=== PATIENT | female | born 1985 | race Caucasian/White ===

== ENCOUNTER 2018-10-24 20:10 | Inpatient (IN) | payer OTHER ==
[2018-10-24 20:35] LABS: #Basophils 0.1 thou/uL (0.0-0.2); #Eosinphils 0.1 thou/uL (0.0-0.7); #Lymphocytes 2.3 thou/uL (1.20-3.40); #Monocytes 0.7 thou/uL (0.11-0.59); #Neutrophils 7.9 thou/uL (1.40-6.50); %Basophils 0.7 % (0.0-1.0); %Eosinophils 1.1 % (0.0-10.0); %Lymphocytes 20.8 % (21.0-51.0); %Monocytes 5.9 % (0.0-10.0); %Neutrophils 71.6 % (42.0-75.0); Hemoglobin 15.5 g/dL (12.0-16.0); Mean Corpuscular Hemoglobin 33.3 pg (27.0-31.0); Mean Corpuscular Volume 97.9 fL (78.0-98.0); Mean Platelet Volume 10.5 fL (7.4-10.4); Platelet Count 124 thou/uL (130-400); RBC Distribution Width 12.4 % (11.5-14.5); Red Blood Cell (RBC) Count 4.65 mill/uL (4.20-5.40); White Blood Cell (WBC) Count 11.1 thou/uL (4.8-10.8)
[2018-10-24 20:49] LABS: ALT (SGPT) 20 U/L (8-55); AST (SGOT) 24 U/L (5-34); Albumin 4.5 g/dL (3.5-5.0); Alkaline Phosphatase 68 U/L (40-150); Anion Gap 15 mmol/L (10-20); BUN (Urea Nitrogen) 10 mg/dL (7.0-18.7); Bilirubin, Total 1.1 mg/dL (0.2-1.2); Calc. Creatinine Clearance 0 mL/min (70-130); Calcium 11.1 mg/dL (7.8-10.44); Carbon Dioxide 24 mmol/L (22-29); Chloride 104 mmol/L (98-107); Estimated GFR-MDRD 73; Globulin 3.2 g/dL (2.4-3.5); Glucose 159 mg/dL (70-105); Potassium 4.2 mmol/L (3.5-5.1); Protein, Total 7.7 g/dL (6.0-8.3); Sodium 139 mmol/L (136-145)
[2018-10-24 21:07] LABS: CKMB 1.2 ng/mL (0-6.6)
[2018-10-24 21:11] LABS: BHCG - Serum Negative (NEGATIVE); Pregs Control Background? CLEAR/WHITE (CLR/WHITE); Pregs Control Bar Appear? YES (CONTROL BAR)
[2018-10-24] MEDS ORDERED: Heparin 25,000 units/D5W 500 ML ONE (21:44)
[2018-10-24] MEDS ORDERED: Heparin 5,000 UNITS/ML VIAL ONE (21:59)
--- NOTE | 2018-10-24 22:14 | CT ---
CT ANGIOGRAM CHEST: 10/24/2018 HISTORY: Chest pain. COMPARISON: None. TECHNIQUE: Axial CT imaging obtained at 2 mm intervals, from the thoracic inlet through the upper abdomen, with IV contrast, using a CT angiogram protocol. Coronal and sagittal 3D reformatted imaging obtained. FINDINGS: There is large volume, acute pulmonary artery embolism seen. There is a linear saddle embolus. Ther e is also clot within the distal main pulmonary artery bilaterally, right greater than left. There i s clot extending into all lobar and segmental pulmonary arteries, supplying both lungs, right greater than left. There is also clot seen within the left atrium and in the region of the pulmonary vein, draining the right lower lobe. There is contrast media within the intrahepatic IVC and hepatic vein, suggesting poor cardiac output. In addition, the right ventricle appears dilated, and the intravent ricular septum is deviated to the left, concerning for right heart strain. There is no pneumothorax. There is mild patchy linear density noted in the superior segment of the r ight lower lobe, best seen on coronal image 18. This may represent a focal area of volume loss or sc ar or, less likely, infectious pneumonitis. There is no discrete/dominant pulmonary parenchymal mass lesion or nodule on either side. No worrisome lytic or blastic bone lesion is seen. There is no lymphadenopathy identified within the chest. IMPRESSION: Large volume, extensive bilateral pulmonary artery embolism, including saddle embolus. There are fin dings concerning for right heart strain, which includes prominence of the right ventricle, a deviatio n of the intraventricular septum to the left, and reflux of contrast media into the hepatic veins and intrahepatic inferior vena cava. There are also findings suspicious for clot, involving the pulmona ry veins draining the right lower lobe and the posterolateral aspect of the left atrium. Results were called to Dr. Timmons at 9:25 p.m. on 10/24/2018. CODE CR POS: OFF
[2018-10-24 23:29] LABS: Troponin I 0.062 ng/mL (< 0.028)
[2018-10-25 00:28] VITALS: BMI 22.2
[2018-10-25] MEDS ORDERED: Heparin 10,000 UNITS/ 10 ML VIAL SLOW IVP SCH (01:00)
[2018-10-25] MEDS ORDERED: Heparin 25,000 units/D5W 500 ML IV SCH (01:00)
[2018-10-25] MEDS ORDERED: Bisacodyl 5 MG TAB PO PRN (01:13)
[2018-10-25] MEDS ORDERED: HYDROcodone/Acetaminophen 5/325 mg Tablet PO PRN (01:13)
[2018-10-25] MEDS ORDERED: Nitroglycerin 0.4 MG TAB (25 Tab Bottle) SL PRN (01:13)
[2018-10-25] MEDS ORDERED: Senokot S 8.6-50 MG TAB PO PRN ×2 (01:13)
[2018-10-25] MEDS ORDERED: Benzonatate 100 MG CAP PO PRN (01:13)
[2018-10-25] MEDS ORDERED: Acetaminophen 500 MG TAB PO PRN (01:13)
[2018-10-25] MEDS ORDERED: hydrALAZINE 20 MG/ML VIAL SLOW IVP PRN (01:13)
[2018-10-25] MEDS ORDERED: Ondansetron PF 4 MG/2 ML Vial IVP PRN ×2 (01:13)
[2018-10-25] MEDS ORDERED: Diabetic Tussin 200 MG/10 ML UDCUP PO PRN (01:13)
[2018-10-25] MEDS ORDERED: cloNIDine 0.1 MG TAB PO PRN (01:13)
--- NOTE | 2018-10-25 02:19 | HP ---
PRIMARY CARE PHYSICIAN: YRIS. CHIEF COMPLAINT: Shortness breath and chest pain. HISTORY OF PRESENTING ILLNESS: Ms. Baptiste is a pleasant 33-year-old female without any significant past medical history except for tobacco abuse, who presented to the [facility] with above-mentioned complaint. History is mainly obtained by the patient herself. Electronic medical records have been reviewed. Case has been discussed with admitting ER physician, Dr. Timmons. Ms. Baptiste reports that she has been in her usual health up until yesterday morning. She is very active and is physically mobile. She was climbing a flight of stairs yesterday when all of a sudden she felt very short of breath and continued to get worse from there on. She also started to experience chest discomfort and chest pain with inspiration. She has no prior symptoms other than what happened yesterday morning. She has no recent illnesses. Denies any fever, chills, or sick contacts. She denies any recent travel. She did have an accident when she fell in the pool and broke her left arm. Her left arm was in the cast for about 6 weeks and just got removed few days ago. She did notice a little bit of swelling and some pain in the cubital fossa after the cast was removed, but that has been getting better. Other than that, she denies being on any contraceptives oral or implantable. She drinks quite heavily about a bottle of wine every day and smokes pack of cigarettes per day as well. Denies any significant family history of bleeding or clotting disorders. Upon presentation to the emergency room, she was quite tachycardic with a heart rate of 133. Fortunately, she was saturating 98% on room air and otherwise was hemodynamically stable. She underwent a CT angio in the ER as well as 12-lead EKG. The EKG showed sinus tachycardia and T-wave inversion in lead 3, AVF, V1, V2, and V3. Her CT angio of the chest, however, showed extensive bilateral pulmonary embolism including a saddle embolus and left atrial thrombus and pulmonary vein thrombus with right heart strain and dilatation and septal deviation. It was read as extensive PE in all lobar and segmental pulmonary arteries, right greater than left. She was started on heparin drip and emergency room physician contacted on-call ict programmer, Dr. Smith. Because of extensive clot burden and evidence of right-sided heart strain, decision was made to give her tPA. Unfortunately because of the heparin bolus, the tPA could not be given 2 hours after the last dose of heparin. Meanwhile, she is being transferred here to Critical Care unit admission for further treatment of her extensive PE. TPA will be shortly given as she is about 2 hours out from the last dose of heparin. At the time of my evaluation, the patient is hemodynamically stable and is asymptomatic except for some pain in the chest when she takes a deep breath. PAST MEDICAL HISTORY: None reviewed with the patient. PAST SURGICAL HISTORY: section and left fracture casting 6 weeks ago. PSYCHIATRIC HISTORY: No anxiety. No depression. SOCIAL HISTORY: She drinks every day and smokes one pack of cigarette per day. Denies any drug abuse. FAMILY HISTORY: No significant family history of clotting or bleeding disorder. One of her family members have diabetes but other than that, no cancer or cardiac history in family. ALLERGIES: NO KNOWN MEDICATION ALLERGIES. CURRENT MEDICATIONS: Unknown beta asad. REVIEW OF SYSTEMS: A 14-point review of system is done and is negative except for those mentioned in the history and physical. LABORATORY DATA: CBC shows WBCs 11.1. Serum chemistry showed glucose 159, calcium 11.1, with no baseline available. Troponin initially 0.071, with repeat troponin of 0.062. Serum test is negative. CT angio by my review shows extensive PE including saddle embolus. Left atrial clot is also seen. Ventricle appears dilated as well and the intraventricular septum is deviated to the left, concerning for right heart strain. Probably the EKG by my review shows T-wave inversion as per the HPI, lead 3, V1, V2, V3, and AVF. PHYSICAL EXAMINATION: VITAL SIGNS: Most recent vital signs, temperature 98.3, heart rate 109, blood pressure 97/74, saturating 96% on room air, respirations 23. GENERAL: The patient is awake, alert, and oriented x3. She is sitting upright in bed comfortably and is in no respiratory distress. HEENT: Mucous membrane is moist and pink. No oropharyngeal exudate or erythema. Head is normocephalic and atraumatic. Pupils are equal and reactive to light and accommodation. Extraocular movement intact. NECK: Supple without any lymphadenopathy, JVD, or bruit. CHEST: Clear to auscultation without any wheezing, rales, or rhonchi. Rate and rhythm are regular without any murmurs, rubs, or gallops except for some sinus tachycardia. ABDOMEN: Soft, nontender, and nondistended. Positive bowel sounds. EXTREMITIES: Free of any cyanosis, clubbing, or edema except for small swelling in her left hand on the dorsal aspect. She has no tenderness to palpation in upper or lower extremity without any obvious swellings or erythema. NEUROLOGICAL: Nonfocal. SKIN: Free of any rashes or bruises. PSYCHIATRIC: Normal affect. She does appear somewhat anxious. IMPRESSION AND PLAN: 1. Extensive bilateral pulmonary embolism. The patient is receiving tPA in the CCU setting. Critical care physician has been consulted and Dr. Smith will also see the patient. She is fortunately hemodynamically stable for now and we will keep a very close eye on her as she has high potential for clinical decompensation with evidence of right ventricular strain as well. She has received a dose of heparin bolus in the ER prior to the tPA and we will avoid any further anticoagulation 24 hours after tPA. All the relative contraindications and absolute contraindications versus indications were reviewed for the tPA prior to administration. The patient most likely has had an upper extremity deep venous thrombosis or superficial vein clot as the arm was immobilized in the cast for 6 weeks causing the pulmonary embolism, though the pulmonary embolism is quite extensive for upper extremity clots. We will do lower extremity ultrasound as well as upper extremity ultrasound to rule out any provoking factors including deep venous thrombosis. Otherwise, a hypercoagulable panel has also been ordered. The patient is not on any medications nor does she have any family history to suggest any inheritable diseases. We will use oxygen as needed and monitor her blood pressure and oxygenation closely. 2. Right-sided heart strain. We will continue to trend cardiac enzyme and also check a BNP. TPA has been given because of this reason as well. 3. Tobacco and alcohol abuse. The patient has been counseled. DISPOSITION: Ms. Baptiste is currently being admitted to CCU with extensive bilateral pulmonary embolus with left atrial clot, as well as right ventricular strain. She is at high risk for clinical decompensation, but too unstable to transfer to [facility]. She is now status post tPA and will be started on anticoagulation 24 hours after that. She will be monitored in CCU with pulmonology consultation. ESTIMATED LENGTH OF STAY: 2 to 3 midnights. Job ID: [id number]
[2018-10-25 03:36] LABS: Troponin I 0.041 ng/mL (< 0.028)
[2018-10-25 04:44] LABS: #Eosinphils 0.1 thou/uL (0.0-0.7); #Lymphocytes 1.9 thou/uL (1.20-3.40); #Monocytes 0.6 thou/uL (0.11-0.59); #Neutrophils 4.5 thou/uL (1.40-6.50); %Basophils 0.3 % (0.0-1.0); %Eosinophils 1.7 % (0.0-10.0); %Lymphocytes 26.9 % (21.0-51.0); %Monocytes 8.1 % (0.0-10.0); Hemoglobin 12.4 g/dL (12.0-16.0); Mean Corpuscular HGB CONC 34.5 g/dL (32.0-36.0); Mean Corpuscular Hemoglobin 33.7 pg (27.0-31.0); Mean Corpuscular Volume 97.7 fL (78.0-98.0); Mean Platelet Volume 9.3 fL (7.4-10.4); Platelet Count 91 thou/uL (130-400); RBC Distribution Width 12.1 % (11.5-14.5); Red Blood Cell (RBC) Count 3.68 mill/uL (4.20-5.40); White Blood Cell (WBC) Count 7.1 thou/uL (4.8-10.8)
[2018-10-25 04:56] LABS: Anion Gap 12 mmol/L (10-20); BUN (Urea Nitrogen) 9 mg/dL (7.0-18.7); Calc. Creatinine Clearance 128 mL/min (70-130); Calcium 9.3 mg/dL (7.8-10.44); Carbon Dioxide 23 mmol/L (22-29); Chloride 105 mmol/L (98-107); Estimated GFR-MDRD Greater than 90; Glucose 100 mg/dL (70-105); Sodium 136 mmol/L (136-145)
[2018-10-25 05:12] LABS: PTT 33.7 SEC (22.9-36.1)
[2018-10-25 05:13] LABS: INR-International Normal Ratio 1.1; Prothrombin Time 14.2 SEC (12.0-14.7)
[2018-10-25 05:54] LABS: D-Dimer Test Greater than 20.00 *mcg/mL (0.27-0.43)
[2018-10-25] MEDS ORDERED: Famotidine 20 MG TAB PO SCH (09:00)
[2018-10-25] MEDS ORDERED: Enoxaparin Sodium 80 MG/0.8 ML SYRINGE SC SCH (09:00)
--- NOTE | 2018-10-25 09:25 | ULT ---
BILATERAL LOWER EXTREMITY VENOUS DUPLEX EXAM: Date: 10/25/18 HISTORY: Bilateral lower extremity pain and swelling. History of PE. FINDINGS: Real-time color Doppler of right and left lower extremity was performed from groin to calf. This incl udes evaluation of the common femoral, superficial and profunda femoral, saphenous, popliteal, and po sterior tibial veins. On the left side, there is a patent deep venous system with normal compressibility and augmentation. On the right side, there is thrombus at the level of the popliteal vein. Above this level, no thrombu s is demonstrated. IMPRESSION: Deep venous thrombosis of the right lower extremity with fairly extensive thrombus seen within the ri ght popliteal vein. These findings were given to nurse, Aaliyah Simpson, by the technologist. CODE CR. POS: [facility]
--- NOTE | 2018-10-25 09:37 | ULT ---
LEFT UPPER EXTREMITY VENOUS DUPLEX EXAM: Date: 10/25/18 HISTORY: Left arm swelling and pain. FINDINGS: Real-time color Doppler evaluation of the left upper extremity including evaluation of the internal j ugular, subclavian, axillary, brachial, basilic, and cephalic veins, as well as radial and ulnar vein s. This shows a patent deep venous system. There is normal compressibility and augmentation. There is no evidence of deep venous thrombosis. IMPRESSION: No evidence of deep venous thrombosis of the left upper extremity. POS: [facility]
[2018-10-25] MEDS ORDERED: Calcium Carbonate 500 MG ChewTAB PO PRN (10:27)
[2018-10-25] MEDS ORDERED: Acetaminophen 325 MG TAB PO PRN (10:27)
[2018-10-25 11:43] LABS: Factor VIII Test 85.6 % ACTIVE (56-157)
[2018-10-25 12:58] LABS: Protein C Activity 49 % (78-152)
--- NOTE | 2018-10-25 17:10 | CON ---
DATE OF CONSULTATION: 10/25/2018 SERVICE: Pulmonary medicine. REASON FOR CONSULTATION: Pulmonary embolism. HISTORY OF PRESENT ILLNESS: The patient is a 33-year-old white female with past medical history significant for essentially nothing. About a day and a half, she had increasing shortness of breath and dyspnea that limited her activity. This is odd for her because she is typically a runner and can run multiple miles on a daily basis. She did not have any recent travel or confined spaces. She has not been sick recently. She does not have a strong family history of thromboembolic disease. Either way, on presentation to the emergency department because of progressive dyspnea, she was discovered to have a pulmonary embolism. This was quite large, right atrial thrombus was present, and she was in right ventricular heart strain. Ultimately, she was a candidate for tPA. This was administered. As such, she is in the ICU. Overnight, her tachyarrhythmia went away completely. She is on room air. She feels much improved, though she is a little bit dyspneic whenever she is doing small activities. She denies any current fevers, chills, nausea, vomiting, or diarrhea. Otherwise, she is in her usual state of health. PAST MEDICAL HISTORY: Thromboembolic disease with extensive PE, and DVT (new this presentation). PAST SURGICAL HISTORY: 1. section. 2. Left leg fracture requiring casting six weeks ago. SOCIAL HISTORY: Negative for alcohol, tobacco, or illicit drug use. She was in the [employer]. She is currently retired from the service. She acquired the rate of ORVIBO. FAMILY HISTORY: Noncontributory. She does have one aunt who had thromboembolic disease, but no primary relatives had it. ALLERGIES: NO KNOWN DRUG ALLERGIES. MEDICATIONS: List of her inpatient medications was reviewed. No specific updates were made at this time. REVIEW OF SYSTEMS: General; head, eyes, ears, nose, and throat; cardiovascular, respiratory, GI, , musculoskeletal, neurologic, and skin are negative, except as mentioned in the HPI. PHYSICAL EXAMINATION: VITAL SIGNS: Afebrile, pulse 87 and profoundly improved compared to presentation (121), respirations 22, saturation 97% on room air. GENERAL: The patient is awake and alert, in no apparent distress. LUNGS: Excellent air entry. No prolonged expiratory phase, wheezing, rhonchi, or crackles are present. HEART: Normal rate, regular. ABDOMEN: Soft, nontender, nondistended. Bowel sounds are positive. MUSCULOSKELETAL: No cyanosis or clubbing. EXTREMITIES: No pitting in the bilateral lower extremities. NEUROLOGIC: Grossly nonfocal. LABORATORY DATA: WBC 7.1, hemoglobin 12.4, and platelets 91,000 and dropping. D-dimer is greater than 20, INR 1.1. Protein-C cannot be interpreted in the acute setting, neither can the antithrombin III functionality. Basic metabolic profile is unremarkable. Her BNP is 607, troponin is beautifully downtrending from 0.07 down to 0.04. Basic metabolic profile and liver function studies are otherwise unremarkable. IMAGIN. Ultrasound of the lower extremity demonstrates a right lower extremity DVT with extensive thrombus in the right popliteal vein. There is no evidence of DVT in the left upper extremity. 2. CTA of the chest demonstrates very large clot burden throughout the pulmonary arteries. There was significant reflux of contrast into the inferior vena cava. The right ventricle is completely dilated. The septum is deviated with a D- shape to it. ASSESSMENT: 1. Acute pulmonary embolism, submassive. 2. Deep vein thrombosis in the left lower extremity. 3. Right ventricular heart strain secondary to pulmonary embolism. 4. Olc-[id number] myocardial infarction. 5. Elevated BNP. DISCUSSION AND PLAN: She is status post tPA at this point. We will give her subcu dose of Lovenox. I will schedule Eliquis twice daily. We have already confirmed that [facility]. I will repeat a troponin and BNP tomorrow morning. If these things are downtrending significantly, and her sodium is stable, she will be a candidate for discharge from the hospital. We will start ambulating her through time today. She has had a profound improvement/response to our tPA therapy. Hopefully, this will be longstanding. She requires a minimum of 9 months of full-dose anticoagulation. After that, I think it would be reasonable to extend her therapy out by couple of months with a low-dose anticoagulation before interrupting altogether. Unfortunately, a protein-C was sent and was abnormal. This is absolutely worthless in the acute setting. She does not require secondary workup for hypercoagulable state at this point. If we need to pursue that, it can be done in 9 months in the outpatient setting. At this point, I probably would recommend that we get a protein-C level once she is off all anticoagulation altogether to prove she does not have this comorbidity. 70 minutes have been devoted to this patient in various activities. I personally reviewed all imaging studies and laboratory data noted within this document. For fifty percent of this time, I was interacting with the patient at the bedside or coordinating care with the care team. For the remainder of the time I was immediately available to the patient in the hospital unit. Job ID: [id number] MTDD
[2018-10-25 17:58] LABS: Cardiolipin IgA Ab 3.1 APL-U/mL (<14 Negative); Cardiolipin IgG Ab 3.3 GPL-U/mL (<10 Negative); Cardiolipin IgM Ab Less than 0.8 MPL-U/mL (<10 Negative); EliA APS New Method **** NEW METHOD ****
[2018-10-25] MEDS: Apixaban 5 MG TAB PO SCH (20:58)
[2018-10-26 04:53] LABS: #Eosinphils 0.2 thou/uL (0.0-0.7); #Lymphocytes 1.9 thou/uL (1.20-3.40); #Monocytes 0.4 thou/uL (0.11-0.59); #Neutrophils 2.6 thou/uL (1.40-6.50); %Basophils 0.5 % (0.0-1.0); %Lymphocytes 37.6 % (21.0-51.0); %Monocytes 7.3 % (0.0-10.0); %Neutrophils 51.7 % (42.0-75.0); Mean Corpuscular HGB CONC 34.5 g/dL (32.0-36.0); Mean Corpuscular Hemoglobin 34.1 pg (27.0-31.0); Mean Corpuscular Volume 98.9 fL (78.0-98.0); Mean Platelet Volume 9.8 fL (7.4-10.4); Platelet Count 101 thou/uL (130-400); RBC Distribution Width 12.2 % (11.5-14.5); Red Blood Cell (RBC) Count 3.83 mill/uL (4.20-5.40)
[2018-10-26 05:13] LABS: Anion Gap 12 mmol/L (10-20); BUN (Urea Nitrogen) 10 mg/dL (7.0-18.7); Calc. Creatinine Clearance 115 mL/min (70-130); Calcium 9.3 mg/dL (7.8-10.44); Carbon Dioxide 25 mmol/L (22-29); Chloride 103 mmol/L (98-107); Estimated GFR-MDRD 81; Glucose 91 mg/dL (70-105); Magnesium 2.2 mg/dL (1.6-2.6); Potassium 4.1 mmol/L (3.5-5.1); Sodium 136 mmol/L (136-145)
[2018-10-26 05:19] LABS: Troponin I 0.012 ng/mL (< 0.028)
[2018-10-26] MEDS: Apixaban 5 MG TAB PO SCH (09:57)
[2018-10-26 11:11] VITALS: BP 107/67; TEMP 97.9
[2018-10-26 13:01] LABS: HEX PHOS LA Tube 1 62.1 SEC; HEX PHOS LA Tube 2 55.4 SEC; Hexagonal Phospholipid Neut 6.7 SEC (0-8.0)
--- NOTE | 2018-10-26 13:59 | DIS ---
DATE OF ADMISSION: 10/24/2018 DATE OF DISCHARGE: 10/26/2018 DISCHARGE DISPOSITION: Home. FOLLOWUP: Follow up with primary care physician at [place] in 1 week. Follow up with Dr. Smith in 2 to 3 weeks. The patient was seen on the day of discharge. Denies any new complaints. No new chest pain, shortness of breath reported. TEST PENDING AT DISCHARGE: Thrombosis panel. The patient was advised to follow up on thrombosis profile. INPATIENT SUPERVISOR BLASTING: Pulmonary, Dr. Smith. DISCHARGE MEDICATIONS: Eliquis 10 mg twice a day for next 6 days, then 5 mg twice a day. ALLERGIES: NO KNOWN DRUG ALLERGIES. BRIEF HOSPITAL COURSE: The patient is a 33-year-old female, who presented to the emergency room with shortness of breath and chest discomfort. Her initial vital signs in the emergency room showed temperature 98 with respirations of 22, pulse rate of 133 with blood pressure of 112/96. Her O2 saturation was 98% on room air. Her EKG showed sinus tachycardia. CT scan of the chest showed bilateral pulmonary embolism along with right heart strain along with saddle embolus. She was placed on heparin drip initially. Per Dr. Philippe Smith's physician, she received tPA. She was monitored in the intensive care unit. Right lower extremity Doppler was positive for extensive thrombus seen within the right popliteal vein. An echocardiogram showed ejection fraction 50% to 55% with severely enlarged right ventricle cavity with mild tricuspid regurgitation. IVC was dilated. Subacute Lovenox has been transitioned to Eliquis. The patient has been cleared by Dr. Sarah Pandya, for discharge. IMPRESSION: 1. Acute submassive pulmonary embolism. 2. Right lower extremity deep vein thrombosis with fairly extensive thrombus seen within the right popliteal vein. 3. Right ventricular heart strain secondary to #1. 4. Elevated troponin secondary to demand ischemia. Maximum troponin was 0.071 (type-2 myocardial infarction). 5. Chronic kidney disease, stage 2. 6. Elevated BNP. BNP maximum was 607. This morning, was 172. 7. Tobacco dependence, the patient was counseled. The patient was advised to follow up on the thrombosis panel. She understands the risk associated with anticoagulation. Plan was discussed with the patient in detail. She stated understanding. Job ID: [id number]
--- NOTE | 2018-10-26 16:21 | PRG ---
DATE OF SERVICE: 10/26/2018 SERVICE: Pulmonary Medicine. INTERVAL HISTORY: The patient is doing outstanding from respiratory standpoint. When she is walking on the level, she has absolutely no shortness of breath. She is intact herself to terribly much. That being said, she feels 100% improved at this point. She is not having any lightheadedness or dizziness whenever she is moving about. She has no chest discomfort. She did not have any pleuritic chest discomfort or cough. PHYSICAL EXAMINATION: VITAL SIGNS: Afebrile, pulse 81, blood pressure is 107/67, respirations 16, saturation 99% on room air. GENERAL: The patient is awake and alert, in no apparent distress. LUNGS: Very good air entry. There is no prolonged expiratory phase or wheezing present. HEART: Normal rate and regular. ABDOMEN: Soft, nontender, and nondistended. Bowel sounds positive. MUSCULOSKELETAL: No cyanosis or clubbing. There is no pitting in the bilateral lower extremities. NEUROLOGIC: Grossly nonfocal. LABORATORY DATA: WBC 5.0, hemoglobin 13.0, platelets 101,000. Basic metabolic profile is unremarkable. Magnesium is normal. Troponin has improved dramatically down to 0.012. BNP has also improved dramatically down to 172 without any diuretics. Anticardiolipin antibodies are unremarkable. IMAGING: Echocardiogram demonstrates normal ejection fraction of 50% to 55%. Right ventricle is severely enlarged. The systolic pressure, however, is not currently elevated. The valves have no significant pathologies. ASSESSMENT: 1. Acute pulmonary embolism, submassive, status post tissue plasminogen activator. 2. Deep venous thrombosis in the left lower extremity. 3. Right ventricular heart strain secondary to pulmonary embolism, resolving. 4. Jii-[id number] myocardial infarction, resolved. DISCUSSION AND PLAN: The patient is tolerating Eliquis just fine. She can be discharged from the hospital today as her shortness of breath is completely resolved. The echocardiogram suggests that her RV is dilated, though the functionality of the right ventricle is currently adequate. This should continue to improve through time. She has an appointment later today to establish care at the [facility] and she would very much like to get to it. Rescheduling these appointments can prove quite challenging. As such, I think it is reasonable that she leave the hospital today. As previously noted, the hypercoagulable workup was performed in the acute setting, and the protein C and protein S levels are completely worthless. If we are worried about a proximate cause, the hypercoagulable workup can be repeated in the outpatient setting in a couple of months. That being said, from my perspective, this was a provoked pulmonary embolism from a recent casting and immobility. Job ID: [id number] MTDD
[2018-11-02] MEDS ORDERED: Apixaban 5 MG TAB PO SCH (09:00)
== END 2018-10-26 11:32 | disposition home or self-care (01) | DRG 175 ==
LOC: SCSER 20:10 → CCU 23:54 → 2NO 10-25 21:16
PROVIDERS: ADMIT Internal Medicine; ATTEND Internal Medicine
PROC: 3E033GC Introduction of Other Therapeutic Substance into Peripheral Vein, Percutaneous Approach (ICD-10-PCS; principal; 2018-10-24)
PROC: 3E03317 Introduction of Other Thrombolytic into Peripheral Vein, Percutaneous Approach (ICD-10-PCS; 2018-10-24)
DX: I26.92 Saddle embolus of pulmonary artery without acute cor pulmonale (principal); I21.A1 Myocardial infarction type 2; I82.431 Acute embolism and thrombosis of right popliteal vein; F17.210 Nicotine dependence, cigarettes, uncomplicated; I51.89 Other ill-defined heart diseases; Z79.899 Other long term (current) drug therapy
CPT/HCPCS: 36415; 71275; 80048; 80053; 81240; 81241; 82553; 83090; 83735; 83880; 84484; 84703; 85025; 85240; 85300; 85303; 85305; 85307; 85379; 85598; 85610; 85730; 86147; 93005; 93306; 93970; 96361; 96374; 96375; J1644; J1650; J2997